=== PATIENT | female | born 1990 | race Caucasian/White ===

== ENCOUNTER 2016-10-06 20:21 | Inpatient (IN) | payer MEDICAID ==
[~2016-10-06] VITALS: Ht 154.9 cm; Wt 64.4 kg
[~2016-10-06 20:21] MED LIST: MACR100C2 PO
[2016-10-06] MEDS ORDERED: CALNTAB (21:20)
[2016-10-06] MEDS ORDERED: NS 1000 ML IV PRN (22:00)
[2016-10-06] MEDS ORDERED: DINOPROSTONE 10 MG INSERT-LEAVE FOR 12 HOURS VAGINAL ONE (22:00)
[2016-10-06] MEDS ORDERED: NS 1000 ML XX PRN (22:00)
[2016-10-06] MEDS ORDERED: LACTATED RINGER'S 1000 ML IV SCH (22:00)
[2016-10-06] MEDS ORDERED: MINERAL OIL 10 ML VIAL TOP PRN (22:00)
[2016-10-06] MEDS ORDERED: LACTATED RINGER'S 1000 ML BOLUS IV PRN (22:00)
[2016-10-06] MEDS ORDERED: LIDOCAINE HCL 1% 50 ML VIAL I-DERMAL PRN (22:00)
[2016-10-06] MEDS ORDERED: NS 500 ML BOLUS IV PRN (22:00)
[2016-10-06] MEDS ORDERED: LACTATED RINGER'S 1000 ML INJ 1,000 ML IV SCH (22:00)
[2016-10-06] MEDS ORDERED: CITRIC ACID-SODIUM CITRATE LIQ 30 ML UDC PO SCH (22:00)
[2016-10-06] MEDS ORDERED: LIDOCAINE HCL 1% 50 ML VIAL INFIL PRN (22:00)
[2016-10-06] MEDS ORDERED: OXYTOCIN 30 UNITS 500ML PREMIX IV ONE (22:00)
[2016-10-06] MEDS ORDERED: ONDANSETRON HCL 4 MG/2 ML VIAL IV PUSH PRN (22:30)
[2016-10-06] MEDS ORDERED: diphenhydrAMINE HCL 50 MG/ML VIAL IV PRN (22:30)
[2016-10-06 22:36] LABS: AUTOMATED NEUTROPHIL # 6.3 TH/MM3 (1.8-7.7); BASOPHIL % 0.2 % (0.0-2.0); EOSINOPHIL # 0.1 TH/MM3 (0-0.4); EOSINOPHIL % 1.2 % (0.0-4.0); HEMO FLAGS DIFF FINAL; LYMPH % 22.8 % (9.0-44.0); LYMPHOCYTE # 2.2 TH/MM3 (1.0-4.8); MEAN CELL VOLUME 83.1 FL (80.0-100.0); MEAN CORPUSCULAR HEMOGLOBIN 27.9 PG (27.0-34.0); MEAN CORPUSCULAR HGB CONC 33.6 % (32.0-36.0); MONO % 11.7 % (0.0-8.0); NEUT % 64.1 % (16.0-70.0); PLATELET COUNT 238 TH/MM3 (150-450); RED BLOOD COUNT 4.45 MIL/MM3 (4.00-5.30); RED CELL DISTRIBUTION WIDTH 14.3 % (11.6-17.2); WHITE BLOOD COUNT 9.8 TH/MM3 (4.0-11.0)
[2016-10-06 22:50] LABS: BACTERIA, URINE RARE /hpf; BLOOD, URINE NEG (NEG); COMMENT (UR) CULT NOT INDICATED; CULTURE IF INDICATED CULT NOT INDICATED; GLUCOSE,URINE NEG (NEG); KETONE, URINE NEG (NEG); NITRITE,URINE NEG (NEG); PH, URINE 7.5 (5.0-8.5); SQUAMOUS EPITHELIAL CELL URINE <1 /hpf (0-5); URINE COLOR YELLOW (YELLW/STRAW)
[2016-10-06 23:00] VITALS: RESP 18; TEMP 98
[2016-10-06 23:01] VITALS: BP 111/66; PULSE 79
[2016-10-06 23:01] LABS: AMPHETAMINE, URINE NEG (NEG); BARBITURATES, URINE NEG (NEG); COCAINE, URINE NEG (NEG)
[2016-10-07] VITALS (50 sets, daily range): BP systolic 95–128; BP diastolic 57–97; PULSE 18–101; RESP 17–20; TEMP 97.6–98.7
[2016-10-07] MEDS ORDERED: LACTATED RINGER'S 1000 ML INJ 1,000 ML IV PRN (07:53)
[2016-10-07] MEDS ORDERED: LIDOCAINE HCL 1% 50 ML VIAL I-DERMAL PRN (08:00)
[2016-10-07] MEDS ORDERED: LIDOCAINE HCL 1% 50 ML VIAL INFIL PRN (08:00)
[2016-10-07] MEDS ORDERED: SODIUM CHLORID 0.9% 500 ML INJ 500 ML IV PRN (08:00)
[2016-10-07] MEDS ORDERED: SODIUM CHLORIDE 0.9% FLUSH 5 ML FLUSH IV FLUSH PRN (08:00)
[2016-10-07] MEDS ORDERED: OXYTOCIN 30 UNITS-500ML PREMIX 500 ML IV ONE (08:00)
[2016-10-07] MEDS ORDERED: CITRIC ACID-SODIUM CITRATE LIQ 30 ML UDC PO SCH (08:00)
[2016-10-07] MEDS ORDERED: LACTATED RINGER'S 1000 ML INJ 1,000 ML IV SCH (08:00)
[2016-10-07] MEDS ORDERED: MINERAL OIL 10 ML VIAL TOPICAL PRN (08:00)
[2016-10-07] MEDS ORDERED: SODIUM CHLOR 0.9% 1000 ML INJ 1,000 ML IV PRN (08:13)
[2016-10-07 08:45] LABS: AUTOMATED NEUTROPHIL # 6.5 TH/MM3 (1.8-7.7); BASOPHIL # 0.1 TH/MM3 (0-0.2); BASOPHIL % 0.6 % (0.0-2.0); EOSINOPHIL # 0.1 TH/MM3 (0-0.4); EOSINOPHIL % 1.2 % (0.0-4.0); HEMATOCRIT 38.1 % (35.0-46.0); HEMO FLAGS DIFF FINAL; LYMPH % 19.1 % (9.0-44.0); LYMPHOCYTE # 1.7 TH/MM3 (1.0-4.8); MEAN CELL VOLUME 84.1 FL (80.0-100.0); MEAN CORPUSCULAR HEMOGLOBIN 27.7 PG (27.0-34.0); MEAN CORPUSCULAR HGB CONC 32.9 % (32.0-36.0); MONO % 8.1 % (0.0-8.0); PLATELET COUNT 191 TH/MM3 (150-450); RED BLOOD COUNT 4.54 MIL/MM3 (4.00-5.30); RED CELL DISTRIBUTION WIDTH 14.6 % (11.6-17.2); WHITE BLOOD COUNT 9.1 TH/MM3 (4.0-11.0)
[2016-10-07] MEDS ORDERED: MISOPROSTOL 25 MCG SUPP VAGINAL ONE ×2 (09:00→12:30)
[2016-10-07] MEDS: SODIUM CHLORIDE 0.9% FLUSH 5 ML FLUSH IV FLUSH SCH ×2 (09:00→21:00)
--- NOTE | 2016-10-07 09:09 | MH ---
cc: FANNY HUNTER DATE OF ADMISSION: 10/06/2016 INDICATION FOR ADMISSION Induction of labor at term. HISTORY OF PRESENT CONDITION The patient is a 25-year-old white female 1, para 0 with LMP 01/01/2016 and EDC 10/07/2016 by 16-week ultrasound and by her LMP. She does have a history of IV drug use beginning as early as the age of 14. She has been in [facility] through this having gone once back to [facility] but most recently stable at [facility]. Her only medications have been vitamins most recently. Her drug court conciliation court judge is Directional Dr[employer] Valentin. She will be 39-5/7 on Friday. Her cervix is thinning, fingertip, but still posterior. Her blood pressure today in the office was 120/80. She had a negative dip of her urine. Weight was 142 which is stable. She does not have headache, nausea, vomiting, blurred vision, right upper quadrant tenderness or significant edema. She is having irregular contractions. Estimated weight of this baby is 7 pounds. Pelvis is clinically adequate. surveillance in the office has been reassuring to date. Her blood type is A positive. Her hemoglobin was 11.8 at the beginning and 11.2 at 28 weeks. Her Pap smear was normal. She is immune to [place] measles and chicken pox. She has negative serology for syphilis, Hepatitis B, HIV, but she is Hep C positive for the antibody. On a quantitative we did not find Hep C RNA. She declined second trimester genetic screening, other than a negative cystic fibrosis. Her TSH was normal. One hour Glucola was 83 and Group B strep was negative. She has a mental history of bipolar disease. ALLERGIES: LATEX PAST SURGICAL HISTORY: Appendectomy in 2009. Her total weight gain has been 20 pounds. PHYSICAL EXAMINATION: She is well developed, slim female in no acute distress. VITAL SIGNS: Her blood pressure today is 120/80. Her weight was 142. Her urine was negative. Neck: She has no thyroid enlargement. Lungs: Clear. Heart: Rate and rhythm are regular. Fundus is term. Cervix is as described above. She has no edema and normal deep tendon reflexes. IMPRESSION: A 39 plus week intrauterine with a history of drug use, currently a resident at [facility] in order to facilitate the delivery at [place] and not have her go into labor at [facility] and be taken to another [facility], we are bringing her in at 39-5/7 weeks with a marginally inducible cervix. We are going to give her Cervidil and epidural as indicated, encourage walking in the birthing ball, and anticipate vaginal delivery on Friday. Fanny Hunter MD PPC/STONE /5:17 PM /9:09 AM
--- NOTE | 2016-10-07 13:04 | PD.LABORPN ---
Subjective Subjective having mild contractions Objective Vital Signs Vital Signs Date Time Temp Pulse Resp B/P Pulse Ox O2 Delivery O2 Flow Rate FiO2 10/07/16 10:56 101 115/64 10/07/16 10:54 18 10/07/16 08:00 17 10/07/16 08:00 97.7 10/07/16 07:58 83 105/71 Objective 1 cm/long/anterior cytotec suppository placed Strip category 1 Assessment/Plan Assessment and Plan continue cytotec suppositories until better Day score Fanny Alejandra MD Oct 07, 2016 13:04
[2016-10-07] MEDS ORDERED: fentaNYL 2MCG-BUPIV 0.125% INJ 100 ML ONE (20:30)
[2016-10-07] MEDS ORDERED: ePHEDrine/NS 25 MG/5 ML SYR IV PRN (22:15)
[2016-10-07] MEDS ORDERED: fentaNYL 2MCG-BUPIV 0.125% 100 ML EPIDURAL SCH (22:15)
[2016-10-07] MEDS ORDERED: DO NOT ADMINISTER ANTICOAGULANTS XX PRN (22:15)
[2016-10-07] MEDS ORDERED: NO SYSTEM NARCOTICS XX PRN (22:15)
[2016-10-07] MEDS ORDERED: OXYTOCIN 30 UNITS/NS 500ML PREMIX IV SCH (22:45)
[2016-10-07 23:00] LABS: MRSA PCR NEGATIVE (NEGATIVE); STAPH AUREUS PCR NEGATIVE (NEGATIVE)
[2016-10-08] VITALS (31 sets, daily range): BP systolic 98–121; BP diastolic 46–88; PULSE 18–101; RESP 18; TEMP 98.2–98.9
--- NOTE | 2016-10-08 04:29 | PD.LABORPN ---
Subjective Subjective Patient now has epidural and is anterior lip underwent AROM at 2/80/-1 posterior at 8 pm augmented after epidural progressed appropriately anticipate second stage soon. Objective Vital Signs Vital Signs Date Time Temp Pulse Resp B/P Pulse Ox O2 Delivery O2 Flow Rate FiO2 10/08/16 04:00 76 111/69 10/08/16 03:30 70 103/88 10/08/16 03:28 18 10/08/16 03:00 74 105/62 10/08/16 02:30 103/62 10/08/16 02:30 73 10/08/16 02:25 98.5 10/08/16 02:15 18 10/08/16 02:00 70 100/55 10/08/16 01:45 18 10/08/16 01:30 69 98/63 10/08/16 01:03 18 10/08/16 01:01 65 100/46 10/08/16 00:45 63 108/71 10/08/16 00:32 18 10/08/16 00:30 65 103/66 10/08/16 00:15 64 104/65 10/08/16 00:07 18 10/08/16 00:00 77 10/08/16 00:00 109/67 10/07/16 23:45 62 105/65 10/07/16 23:45 18 10/07/16 23:45 98.4 10/07/16 23:30 65 112/66 10/07/16 23:15 74 18 10/07/16 23:15 95/57 10/07/16 23:01 83 10/07/16 23:01 107/74 10/07/16 22:45 18 10/07/16 22:45 78 107/68 10/07/16 22:30 73 116/67 10/07/16 22:15 85 108/75 10/07/16 22:01 18 10/07/16 22:00 98.7 73 121/68 10/07/16 21:45 76 119/72 10/07/16 21:38 18 10/07/16 21:36 71 10/07/16 21:36 116/70 10/07/16 21:33 106/77 10/07/16 21:30 71 121/66 10/07/16 21:27 123/70 10/07/16 21:27 72 10/07/16 21:24 119/68 10/07/16 21:21 68 118/70 10/07/16 21:18 68 119/72 10/07/16 21:16 18 10/07/16 21:15 69 122/71 10/07/16 21:14 18 10/07/16 21:12 70 111/97 10/07/16 21:10 120/67 10/07/16 21:01 20 10/07/16 20:55 70 20 128/79 Objective Pelvic Exam: Cervix: [-] Dilatation: [-] Effacement: [-] Station: [-] Presentation: [-] Membranes: [intact or ruptured] Uterine Contractions: [-] FHT's: Category: [-] Baseline: [-] Reactive: [-] Variability: [-] Decels: [-] Fanny Alejandra MD Oct 08, 2016 04:29
[2016-10-08 05:40] LABS: BLOOD GAS BASE EXCESS -7.3 mmol/L (-2-2); BLOOD GAS O2 HGB SATURATION 47 % (90-100); CORD BLOOD GAS HCO3 21 mmol/L (21-29); CORD BLOOD GAS PCO2 64 mmHG (34-78); CORD BLOOD GAS PH 7.13 (7.14-7.42); CORD BLOOD GAS PO2 29 mmHG (3.0-40.0)
[2016-10-08 05:41] LABS: DRAW SITE CORD BLOOD; STAT YES
--- NOTE | 2016-10-08 06:20 | PD.OB.DELI ---
Anesthesia: Epidural Episiotomy: Midline Vaginal Delivery: Normal, Vacuum Presentation: Occiput anterior Nuchal Cord: x1 Delayed cord clamping (45 sec): Yes : Male One Minute : 8 Five Minute : 9 Weight: 7 10 Care: Suctioned, Spontaneous crying Placenta: Spontaneous delivery Laceration: Episiotomy, 2 deg Repair: Chromic interrupted, Vicryl interrupted Fanny Alejandra MD Oct 08, 2016 06:19
[2016-10-08] MEDS ORDERED: ONDANSETRON ODT 4 MG TAB PO PRN (06:30)
[2016-10-08] MEDS ORDERED: ZOLPIDEM TARTRATE 5 MG TAB PO PRN (06:30)
[2016-10-08] MEDS ORDERED: DOCUSATE SODIUM 50 MG/SENNA 8.6 MG TAB PO PRN (06:30)
[2016-10-08] MEDS ORDERED: ACETAMINOPHEN 325 MG TAB PO PRN (06:30)
[2016-10-08] MEDS ORDERED: WITCH HAZEL 50%/GLYCERIN 12.5% 40 PAD JAR TOPICAL PRN (06:30)
[2016-10-08] MEDS ORDERED: BENZOCAINE 20% TOPICAL SPRAY 60 ML CAN TOPICAL PRN (06:30)
[2016-10-08] MEDS ORDERED: ALUMINUM/MAGNESIUM/SIMETH 30 ML CUP PO PRN (06:30)
[2016-10-08] MEDS ORDERED: SODIUM CHLORIDE 0.9% FLUSH 5 ML FLUSH IV PRN (06:30)
[2016-10-08] MEDS ORDERED: SODIUM CHLORIDE 0.9% FLUSH 5 ML FLUSH IV SCH (09:00)
[2016-10-08] MEDS: IBUPROFEN 600 MG TAB PO PRN ×3 (11:50→23:58)
[2016-10-08] MEDS ORDERED: DIPHTH/TETANUS/ACEL PERTUSSIS (BOOSTER) 0.5 ML VIAL/PFS IM ONE (16:00)
[2016-10-08] MEDS ORDERED: MEASLES, MUMPS, RUBELLA VACCINE 0.5 ML VIAL SQ ONE (16:00)
[2016-10-08] MEDS: SODIUM CHLORIDE 0.9% FLUSH 5 ML FLUSH IV FLUSH SCH (21:00)
[2016-10-09 09:11] VITALS: BP 122/68; PULSE 74; RESP 18; TEMP 97.8
--- NOTE | 2016-10-09 11:23 | HHI.OB ---
Subjective Post Day: 1 Remarks PPD#1; stable Objective Vitals/I&O Vital Signs Date Time Temp Pulse Resp B/P Pulse Ox O2 Delivery O2 Flow Rate FiO2 10/09/16 09:11 97.8 74 18 122/68 10/08/16 19:30 18 109/64 10/08/16 19:30 98.2 18 Objective Remarks GENERAL: Well-nourished, well-developed patient. CARDIOVASCULAR: Regular rate and rhythm without murmurs, gallops, or rubs. RESPIRATORY: Breath sounds equal bilaterally. No accessory muscle use. ABDOMEN/GI: Abdomen soft, non-tender. Fundus: Firm, non-tender at umbilicus. GENITOURINARY: Light to moderate bleeding. EXTREMITIES: No cyanosis or edema, non-tender, without signs of DVT. Medications and IVs Current Medications Medications (Trade) Dose Ordered Sig/Eleni Route Start Time Stop Time Status Last Admin (NS 1000 ml Inj) 1,000 ml @ 0 mls/hr UNSCH PRN XX 10/06/16 22:00 (Zofran Inj) 4 mg Q6H PRN IV PUSH 10/06/16 22:30 10/07/16 05:14 Diphenhydramine HCl 25 mg 25 mg Q4H PRN IV 10/06/16 22:30 10/07/16 04:08 Lactated Ringer's 1,000 ml @ 125 mls/hr Q8H IV 10/07/16 08:00 10/07/16 18:50 Lactated Ringer's 1,000 ml @ 3,000 mls/hr Q20M PRN IV 10/07/16 07:53 10/07/16 21:01 (NS 1000 ml Inj) 1,000 ml @ 100 mls/hr Q10H PRN IV 10/07/16 08:13 (fentaNYL INJ) 50 mcg Q1H PRN IV PUSH 10/07/16 08:00 (fentaNYL INJ) 100 mcg Q1H PRN IV PUSH 10/07/16 08:00 (Muri-Lube Oil) 10 ml UNSCH PRN TOPICAL 10/07/16 08:00 (NS Flush) 2 ml BID IV FLUSH 10/07/16 09:00 IV Flush 2 ml 2 ml UNSCH PRN IV FLUSH 10/07/16 08:00 Fentanyl/ Bupivacaine HCl 100 ml @ 0 mls/hr TITRATE EPIDURAL 10/07/16 22:15 (Pitocin 30 Units-NS 500 ml Premix) 500 ml @ 0 mls/hr TITRATE IV 10/07/16 22:45 10/07/16 23:29 (NS Flush) 2 ml BID IV 10/08/16 09:00 (NS Flush) 2 ml UNSCH PRN IV 10/08/16 06:30 (Tylenol) 650 mg Q4H PRN PO 10/08/16 06:30 (Motrin) 600 mg Q6H PRN PO 10/08/16 06:30 10/08/16 23:58 (Americaine 20% Top Spr) 1 spray Q4H PRN TOPICAL 10/08/16 06:30 10/08/16 11:59 (Tucks Pads) 1 applic QID PRN TOPICAL 10/08/16 06:30 10/08/16 11:59 (Anahi-Colace) 2 tab Q12H PRN PO 10/08/16 06:30 (Ambien) 5 mg HS PRN PO 10/08/16 06:30 (Mag-Al Plus Susp Liq) 15 ml Q8H PRN PO 10/08/16 06:30 (Zofran Odt) 4 mg Q6H PRN PO 10/08/16 06:30 Assessment/Plan Assessment and Plan PPD#1; transitioning well, plan discharge for tomorrow Discharge Planning Does not meet criteria Gordon Jaramillo MD Oct 09, 2016 11:23
[2016-10-09] MEDS: IBUPROFEN 600 MG TAB PO PRN ×2 (16:40→23:28)
[2016-10-09 20:00] VITALS: BP 120/72; PULSE 70; RESP 18; TEMP 98
[2016-10-10 08:15] VITALS: BP 120/68; PULSE 80
[2016-10-10 08:16] VITALS: RESP 18; TEMP 98.2
--- NOTE | 2016-10-10 08:27 | HHI.OB ---
Subjective Post Operative Day: 2 Remarks doing well Objective Vitals/I&O Vital Signs Date Time Temp Pulse Resp B/P Pulse Ox O2 Delivery O2 Flow Rate FiO2 10/10/16 08:16 98.2 18 10/10/16 08:15 120/68 10/10/16 08:15 80 10/09/16 20:00 98.0 70 18 120/72 10/09/16 09:11 97.8 74 18 122/68 Result Diagram: 10/07/16 0815 Objective Remarks GENERAL: Well-nourished, well-developed patient. CARDIOVASCULAR: Regular rate and rhythm without murmurs, gallops, or rubs. RESPIRATORY: Breath sounds equal bilaterally. No accessory muscle use. ABDOMEN/GI: Abdomen soft, non-tender, bowel sounds present. Fundus: Firm, non-tender at umbilicus. GENITOURINARY: Light to moderate bleeding. EXTREMITIES: No cyanosis or edema, non-tender, without signs of DVT. Medications and IVs Current Medications Medications (Trade) Dose Ordered Sig/Eleni Route Start Time Stop Time Status Last Admin (NS 1000 ml Inj) 1,000 ml @ 0 mls/hr UNSCH PRN XX 10/06/16 22:00 (Zofran Inj) 4 mg Q6H PRN IV PUSH 10/06/16 22:30 10/07/16 05:14 Diphenhydramine HCl 25 mg 25 mg Q4H PRN IV 10/06/16 22:30 10/07/16 04:08 Lactated Ringer's 1,000 ml @ 125 mls/hr Q8H IV 10/07/16 08:00 10/07/16 18:50 Lactated Ringer's 1,000 ml @ 3,000 mls/hr Q20M PRN IV 10/07/16 07:53 10/07/16 21:01 (NS 1000 ml Inj) 1,000 ml @ 100 mls/hr Q10H PRN IV 10/07/16 08:13 (fentaNYL INJ) 50 mcg Q1H PRN IV PUSH 10/07/16 08:00 (fentaNYL INJ) 100 mcg Q1H PRN IV PUSH 10/07/16 08:00 (Muri-Lube Oil) 10 ml UNSCH PRN TOPICAL 10/07/16 08:00 (NS Flush) 2 ml BID IV FLUSH 10/07/16 09:00 IV Flush 2 ml 2 ml UNSCH PRN IV FLUSH 10/07/16 08:00 Fentanyl/ Bupivacaine HCl 100 ml @ 0 mls/hr TITRATE EPIDURAL 10/07/16 22:15 (Pitocin 30 Units-NS 500 ml Premix) 500 ml @ 0 mls/hr TITRATE IV 10/07/16 22:45 10/07/16 23:29 (NS Flush) 2 ml BID IV 10/08/16 09:00 (NS Flush) 2 ml UNSCH PRN IV 10/08/16 06:30 (Tylenol) 650 mg Q4H PRN PO 10/08/16 06:30 (Motrin) 600 mg Q6H PRN PO 10/08/16 06:30 10/09/16 23:28 (Americaine 20% Top Spr) 1 spray Q4H PRN TOPICAL 10/08/16 06:30 10/08/16 11:59 (Tucks Pads) 1 applic QID PRN TOPICAL 10/08/16 06:30 10/08/16 11:59 (Anahi-Colace) 2 tab Q12H PRN PO 10/08/16 06:30 (Ambien) 5 mg HS PRN PO 10/08/16 06:30 (Mag-Al Plus Susp Liq) 15 ml Q8H PRN PO 10/08/16 06:30 (Zofran Odt) 4 mg Q6H PRN PO 10/08/16 06:30 Assessment/Plan Assessment and Plan PPD#2; transitioning well, plan discharge for tomorrow Discharge Planning today to [facility] Attending Attestation pt seen by Becka Doan MD Oct 10, 2016 08:27
[2016-10-10] MEDS ORDERED: IBUP-232 PO (08:30)
--- NOTE | 2016-10-10 08:30 | HHI.DCPOC ---
Discharge Care Plan Your Health Problems Are: Pelvic pain Report Symptoms to Your Doctor -Temperate above 100.5 degrees -Redness, of incision or excessive or foul smelling drainage -Unusual pain or calf pain -Increased vaginal bleeding -Painful or difficulty urinating -Feelings of extreme sadness or anxiety after 2 weeks Goals to Promote Your Health * To prevent worsening of your condition and complications * To maintain your health at the optimal level Directions to Meet Your Goals Take your medications as prescribed Follow your dietary instruction Follow activity as directed Ensure plenty of rest for recovery Drink fluids for hydration Keep your appointments as scheduled Take your immunizations and boosters as scheduled If your symptoms worsen call your PCP, if no PCP go to Urgent Care Center or Emergency Room Smoking is Dangerous to Your Health. Avoid second hand smoke Call the 24-hour crisis hotline for domestic abuse at Becka De Luna MD Oct 10, 2016 08:30
[2016-10-10 09:40] LABS: BATH SALTS (MDPV) UR NEG (NEG); ECSTASY (MDMA) UR NEG (NEG); HEROIN (6-ACETYLMORPHINE) UR NEG (NEG); K2 SPICE UR NEG (NEG); OBMETHADONE UR NEG (NEG); PHENCYCLIDINE URINE NEG (NEG)
[2016-10-10 09:41] LABS: OXYCODONE (PERCODAN) NEG (NEG)
== END 2016-10-10 14:15 | disposition home or self-care (01) | DRG 774 ==
LOC: H2EA 20:21 → H1EA 10-08 09:50
PROVIDERS: ADMIT Obstetrics & Gynecology; ATTEND Obstetrics & Gynecology
PROC: 10D07Z6 Extraction of Products of Conception, Vacuum, Via Natural or Artificial Opening (ICD-10-PCS; principal; 2016-10-06)
PROC: 0W8NXZZ Division of Female Perineum, External Approach (ICD-10-PCS; 2016-10-06)
PROC: 3E0P7GC Introduction of Other Therapeutic Substance into Female Reproductive, Via Natural or Artificial Opening (ICD-10-PCS; 2016-10-06)
PROC: 00HU33Z Insertion of Infusion Device into Spinal Canal, Percutaneous Approach (ICD-10-PCS; 2016-10-07)
PROC: 3E0R3CZ (ICD-10-PCS; 2016-10-07)
PROC: 10907ZC Drainage of Amniotic Fluid, Therapeutic from Products of Conception, Via Natural or Artificial Opening (ICD-10-PCS; 2016-10-08)
DX: O98.42 Viral hepatitis complicating childbirth (principal); B19.20 Unspecified viral hepatitis C without hepatic coma; O69.81X0 Labor and delivery complicated by cord around neck, without compression, not applicable or unspecified; O66.5 Attempted application of vacuum extractor and forceps; Z87.898 Personal history of other specified conditions; Z87.891 Personal history of nicotine dependence; Z3A.39 39 weeks gestation of pregnancy; Z37.0 Single live birth
CPT/HCPCS: 59025; 80307; 81001; 82805; 85025; 86900; 86901; 87640; 87641; 90715; G0481; J1200; J2405; J2590; J7120

== ENCOUNTER 2017-12-20 09:56 | Emergency (ER) | payer SELFPAY ==
[~2017-12-20] VITALS: Ht 154.9 cm; Wt 50.0 kg
[~2017-12-20 09:56] MED LIST changes: +CALNTAB; +IBUP-232 PO; -MACR100C2 PO
[2017-12-20 10:06] VITALS: BP 125/66; PULSE 86; RESP 16; TEMP 98.5; O2SAT 99
[2017-12-20] MEDS ORDERED: TEGR200T PO (10:22)
[2017-12-20] MEDS ORDERED: BUSP5TAB PO (10:22)
--- NOTE | 2017-12-20 10:55 | PD ---
HPI . 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 Onset was 9 months ago. She states that she has been in [facility] and was just released 4 days ago. She states that she was told by the alf that she should seek care for her discharge when she was released from [facility]. She states that the discharge is clear and is not malodorous. She has no associated pain. She is unaware of any modifying factors. She has had an IUD for 1 year. [facility] Past Medical History Diminished Hearing: No Hepatitis: Yes (Hep C) ?: Not LMP: 3 weeks ago : 1 Para: 0 Miscarriage: 0 : 0 Past Surgical History Appendectomy: Yes (2009) Social History Alcohol Use: No Tobacco Use: Yes (5 per day) Substance Use: No Allergies-Medications (Allergen,Severity, Reaction): Coded Allergies: latex (Unverified Allergy, Severe, 03/04/17) Reported Meds & Prescriptions Reported Meds & Active Scripts Active Reported Buspirone (Buspirone HCl) 5 Mg Tab 5 Mg PO BID Tegretol (Carbamazepine) 200 Mg Tab 200 Mg PO BID Review of Systems Except as stated in HPI: all other systems reviewed are Neg Genitourinary: Positive: Discharge, No: Urgency, Frequency, Dysuria, Pelvic Pain, Vaginal Bleeding Physical Exam Narrative GENERAL: Awake and alert and in no acute distress. SKIN: warm/dry. Normal color and turgor. HEAD: Normocephalic. Atraumatic. EYES: Pupils equal and round. No scleral icterus. No injection or drainage. ENT: No nasal bleeding or discharge. Mucous membranes pink and moist. NECK: Trachea midline. Full range of motion without pain.. CARDIOVASCULAR: Regular rate and rhythm. RESPIRATORY: No accessory muscle use. : Normal female external genitalia. Scant mucus discharge coming from the cervical loss. The string of the IUD is visible. There is no cervical motion tenderness and no adnexal tenderness MUSCULOSKELETAL: No obvious deformities. NEUROLOGICAL: Awake and alert. No obvious cranial nerve deficits. Motor grossly within normal limits. Normal speech. PSYCHIATRIC: Appropriate mood and affect; insight and judgment normal. Data Data Last Documented VS Vital Signs Date Time Temp Pulse Resp B/P (MAP) Pulse Ox O2 Delivery O2 Flow Rate FiO2 12/20/17 10:06 98.5 86 16 125/66 (85) 99 Orders Orders Gc And Chlamydia Pcr (12/20/17 10:38) Wet Prep Profile (12/20/17 10:38) Ua Includes Microscopic (12/20/17 10:38) Ed Urine Pregnancytest Poc (12/20/17 10:38) Labs Laboratory Tests Test 12/20/17 10:48 12/20/17 10:52 Urine Color ORANGE Urine Turbidity HAZY Urine pH 6.0 Urine Specific [place] 1.036 Urine Protein 100 mg/dL Urine Glucose (UA) NEG mg/dL Urine Ketones 10 mg/dL Urine Occult Blood NEG Urine Nitrite NEG Urine Bilirubin SMALL Urine Urobilinogen 2.0 MG/DL Urine Leukocyte Esterase SMALL Urine RBC 4 /hpf Urine WBC 7 /hpf Urine Squamous Epithelial Cells 54 /hpf Urine Bacteria FEW /hpf Urine Mucus MANY /lpf Clue Cells (Wet Prep) NONE SEEN Vaginal Trichomonas (Wet Prep) NONE SEEN Vaginal Yeast (Wet Prep) NONE SEEN MDM Medical Decision Making Medical Screen Exam Complete: Yes Emergency Medical Condition: Yes Differential Diagnosis Differential diagnosis of vaginal discharge includes but is not limited to physiologic discharge, yeast infection, bacterial vaginosis, sexually transmitted disease. Narrative Course This patient presents with chief complaint of a vaginal discharge for the last 9 months. She has had a Mirena for about 12 months. She states that she developed a discharge while in alf and was instructed by the alf to follow -up for her discharge when she was released. She was released 4 days ago. The discharge looks physiological. HCG neg. UA>>small LE, 4 RBCs, 7 WBCs, few bact, 54 sq epi's and many mucous>> contamination Wet prep is negative I feel that this patient is having a physiological discharge. 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 Diagnosis Primary Impression: Vaginal discharge Referrals: Fanny Alejandra MD Patient Instructions: General Instructions, Vaginal Discharge (ED) Disposition: 01 DISCHARGE HOME Condition: Stable Patti Pena MD Dec 20, 2017 10:55
[2017-12-20 11:23] LABS: BACTERIA, URINE FEW /hpf; BILIRUBIN, URINE SMALL (NEG); BLOOD, URINE NEG (NEG); GLUCOSE,URINE NEG (NEG); KETONE, URINE 10 mg/dL (NEG); MUCUS URINE MANY /lpf (OCC); NITRITE,URINE NEG (NEG); SQUAMOUS EPITHELIAL CELL URINE 54 /hpf (0-5); URINE LEUKOCYTE ESTERASE SMALL (NEG)
[2017-12-20 11:26] LABS: URINE COLOR ORANGE (YELLW/STRAW)
== END 2017-12-20 12:12 | disposition home or self-care (01) ==
LOC: NEPD 09:56
DX: N89.8 Other specified noninflammatory disorders of vagina (principal)
CPT/HCPCS: 81001; 84703; 87210; 87491; 87591; 99283